=== PATIENT | female | born 1985 | race Caucasian/White ===

== ENCOUNTER 2016-07-24 21:37 | Emergency (ER) | payer OTHER ==
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
--- NOTE | 2016-07-24 22:47 | DIAGNOSTIC IMAGING REPORT ---
PROCEDURE: CT HEAD WITHOUT CONTRAST INDICATION: TRAUMA/INJURY TECHNIQUE: Axial CT images were acquired through the head. Coronal and sagittal reformations were created. COMPARISON: None. FINDINGS: No intracranial hemorrhage or extraaxial fluid collections. Ventricles are normal in size, shape and position. There is no mass, mass effect or midline shift. The lazcano-white matter differentiation is normal. There is no edema. Small right frontal soft tissue contusion. The skull is intact. Visible sinuses and mastoids are normally aerated. IMPRESSION: 1. No CT evidence of acute intracranial process. 2. Findings discussed with Dr. Macedo at [address] scans at this facility use dose modulation, iterative reconstruction, and/or weight-based dosing when appropriate to reduce radiation dose to as low as reasonably achievable.
--- NOTE | 2016-07-25 00:29 | ED ORDER SUMMARY ---
..... Patient: BILL MILLARD OrderSheet [facility] VisitID: [id number] [place] [address] 30y, F Registration Date/Time: 07/24/2016 ORDER SHEET Weight: 58.9 kg (stated) Allergies: No Known Drug Allergy GENERAL ORDERS: CT Head wo Cont Urgent (21:48 07/24/2016 Meir RAZO) (Ack 21:51 OBINNAurca ER Tech1) (22:16 EHassan R.N.) CT Sinus/Facial Bones wo Cont Urgent (21:49 07/24/2016 Meir RAZO) (Ack 21:51 Pool ER Tech1) (22:16 EHassan R.N.) CT Cervical Spine wo Cont Urgent (21:49 07/24/2016 Meir RAZO) (Ack 21:51 Pool ER Tech1) (22:16 EHassan R.N.) CBC w Diff Urgent (21:49 07/24/2016 Meir RAZO) (Ack 21:51 Pool ER Tech1) (22:16 EHassan R.N.) CMP Urgent (21:49 07/24/2016 Meir RAZO) (Ack 21:51 Pool ER Tech1) (22:16 EHassan R.N.) UA-Culture if indicated Urgent (21:49 07/24/2016 Meir RAZO) (Ack 21:51 Pool ER Tech1) (0:52 EHassan R.N.) Amylase Urgent (21:49 07/24/2016 Meir RAZO) (Ack 21:51 Pool ER Tech1) (22:16 EHassan R.N.) Lipase Urgent (21:49 07/24/2016 Meir RAZO) (Ack 21:51 Pool ER Tech1) (22:16 EHassan R.N.) Urine Urgent (21:49 07/24/2016 Meir RAZO) (Ack 21:51 Pool ER Tech1) (22:16 EHassan R.N.) Urine Drug Screen Urgent (21:49 07/24/2016 Meir RAZO) (Ack 21:51 IJurca ER Tech1) (22:16 Vivian R.N.) Ethyl Alcohol Urgent (21:49 07/24/2016 Meir RAZO) (Ack 21:51 Pool OSBORNE Tech1) (22:16 Vivian R.N.) MEDICATION ORDERS: Tdap IM 0.5 mL (NOW) (21:50 07/24/2016 Meir RAZO) (22:38 Vivian R.N.) Augmentin PO 875 mg (NOW) (23:07 07/24/2016 Meir RAZO) (23:31 Vivian R.N.) IV FLUIDS: IV NS : initial bolus 1000 mL (1000 mL/hr), then 150 mL/hr for 4h (NOW); Urgent (21:48 07/24/2016 Meir RAZO) (21:56 Isidra R.N.) Dilaudid IV 0.5 mg (HIGH ALERT MEDICATION, NOW) (22:15 07/24/2016 Meir RAZO) (22:16 Vivian R.N.) Dilaudid IV 0.5 mg (Q 15 minutes for a total of 2 mg) (22:31 07/24/2016 Vivian R.N. verbal order read back to Meir RAZO) (22:35 Vivian R.N.) ORDER SHEET NOTES: [Electronically signed by Toya Dexter R.N. (00:54 07/25/2016)] [Electronically signed by Jose Macedo MD (02:22 07/25/2016)] [Electronically locked/signed by Toya Dexter R.N. (00:54 07/25/2016)]
--- NOTE | 2016-07-25 00:29 | ED ORDER SUMMARY ---
..... Patient: BILL MILLARD OrderSheet [facility] VisitID: [id number] [place] [address] 30y, F Registration Date/Time: 07/24/2016 ORDER SHEET Weight: 58.9 kg (stated) Allergies: No Known Drug Allergy GENERAL ORDERS: CT Head wo Cont Urgent (21:48 07/24/2016 Meir RAZO) (Ack 21:51 OBINNAurca ER Tech1) (22:16 EHassan R.N.) CT Sinus/Facial Bones wo Cont Urgent (21:49 07/24/2016 Meir RAZO) (Ack 21:51 Pool ER Tech1) (22:16 EHassan R.N.) CT Cervical Spine wo Cont Urgent (21:49 07/24/2016 Meir RAZO) (Ack 21:51 Pool ER Tech1) (22:16 EHassan R.N.) CBC w Diff Urgent (21:49 07/24/2016 Meir RAZO) (Ack 21:51 Pool ER Tech1) (22:16 EHassan R.N.) CMP Urgent (21:49 07/24/2016 Meir RAZO) (Ack 21:51 Pool ER Tech1) (22:16 EHassan R.N.) UA-Culture if indicated Urgent (21:49 07/24/2016 Meir RAZO) (Ack 21:51 Pool ER Tech1) (0:52 EHassan R.N.) Amylase Urgent (21:49 07/24/2016 Meir RAZO) (Ack 21:51 Pool ER Tech1) (22:16 EHassan R.N.) Lipase Urgent (21:49 07/24/2016 Meir RAZO) (Ack 21:51 Pool ER Tech1) (22:16 EHassan R.N.) Urine Urgent (21:49 07/24/2016 Meir RAZO) (Ack 21:51 Pool ER Tech1) (22:16 EHassan R.N.) Urine Drug Screen Urgent (21:49 07/24/2016 Meir RAZO) (Ack 21:51 IJurca ER Tech1) (22:16 Vivian R.N.) Ethyl Alcohol Urgent (21:49 07/24/2016 Meir RAOZ) (Ack 21:51 Pool OSBORNE Tech1) (22:16 Vivian R.N.) MEDICATION ORDERS: Tdap IM 0.5 mL (NOW) (21:50 07/24/2016 Meir RAZO) (22:38 Vivian R.N.) Augmentin PO 875 mg (NOW) (23:07 07/24/2016 Meir RAZO) (23:31 Vivian R.N.) IV FLUIDS: IV NS : initial bolus 1000 mL (1000 mL/hr), then 150 mL/hr for 4h (NOW); Urgent (21:48 07/24/2016 Meir RAZO) (21:56 Isidra R.N.) Dilaudid IV 0.5 mg (HIGH ALERT MEDICATION, NOW) (22:15 07/24/2016 Meir RAZO) (22:16 Vivian R.N.) Dilaudid IV 0.5 mg (Q 15 minutes for a total of 2 mg) (22:31 07/24/2016 Vivian R.N. verbal order read back to Meir RAZO) (22:35 Vivian R.N.) ORDER SHEET NOTES: [Electronically signed by Toya Dexter R.N. (00:54 07/25/2016)] [Electronically signed by Jose Macedo MD (02:22 07/25/2016)] [Electronically locked/signed by Toya Dexter R.N. (00:54 07/25/2016)]
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
--- NOTE | 2016-07-25 02:23 | ED MED RECONCILIATION SUMMARY ---
Patient: BILL MILLARD Medication Reconciliation Report [facility] VisitID: [id number] [place] [address] 30y, F Registration Date/Time: 07/24/2016 Weight: 58.9 kg Height/Length: 67 in. BMI: 20.4 ALLERGIES: No Known Drug Allergy The patient's Home Medications are listed below: THE FOLLOWING MEDICATIONS NEED TO BE RECONCILED: Vitamins Oral PriLOSEC Oral The source(s) of the original Home Medication information: Not obtained. The following Medications were given to the patient in the Emergency Department: IV NS IV Fluids bolus 1000 mL over 1 hour(s), administered: 07/24/2016 9:56:00 PM Dilaudid [IVP] IVP 0.5 mg, administered: 07/24/2016 10:16:00 PM Dilaudid [IVP] IVP 0.5 mg, administered: 07/24/2016 10:35:00 PM TDAP [IM] IM 0.5 mL, administered: 07/24/2016 10:38:00 PM Dilaudid [IVP] IVP 0.5 mg, administered: 07/24/2016 11:05:00 PM Dilaudid [IVP] IVP 0.5 mg, administered: 07/24/2016 11:28:00 PM Augmentin [PO] PO 875 mg, administered: 07/24/2016 11:31:00 PM The following Medications were prescribed to the patient: Hydrocodone/APAP 5mg/325mg: take 1 to 2 orally every 6 hours as needed for pain. Dispense fifteen (15). No refills. -- Jose Macedo MD Augmentin 875 mg: take 1 tablet orally every 12 hours for 10 days. No refill. Substitution is permissible. -- Jose Macedo MD
--- NOTE | 2016-07-25 02:23 | ED MED RECONCILIATION SUMMARY ---
Patient: BILL MILLARD Medication Reconciliation Report [facility] VisitID: [id number] [place] [address] 30y, F Registration Date/Time: 07/24/2016 Weight: 58.9 kg Height/Length: 67 in. BMI: 20.4 ALLERGIES: No Known Drug Allergy The patient's Home Medications are listed below: THE FOLLOWING MEDICATIONS NEED TO BE RECONCILED: Vitamins Oral PriLOSEC Oral The source(s) of the original Home Medication information: Not obtained. The following Medications were given to the patient in the Emergency Department: IV NS IV Fluids bolus 1000 mL over 1 hour(s), administered: 07/24/2016 9:56:00 PM Dilaudid [IVP] IVP 0.5 mg, administered: 07/24/2016 10:16:00 PM Dilaudid [IVP] IVP 0.5 mg, administered: 07/24/2016 10:35:00 PM TDAP [IM] IM 0.5 mL, administered: 07/24/2016 10:38:00 PM Dilaudid [IVP] IVP 0.5 mg, administered: 07/24/2016 11:05:00 PM Dilaudid [IVP] IVP 0.5 mg, administered: 07/24/2016 11:28:00 PM Augmentin [PO] PO 875 mg, administered: 07/24/2016 11:31:00 PM The following Medications were prescribed to the patient: Hydrocodone/APAP 5mg/325mg: take 1 to 2 orally every 6 hours as needed for pain. Dispense fifteen (15). No refills. -- Jose Macedo MD Augmentin 875 mg: take 1 tablet orally every 12 hours for 10 days. No refill. Substitution is permissible. -- Jose Macedo MD
--- NOTE | 2016-07-25 02:23 | ED DISCHARGE INSTRUCTIONS ---
Patient: BILL MILLARD General Instructions [facility] VisitID: [id number] [address] [place] [address] 30y, F Registration Date/Time: 07/24/2016 Multiple deep abrasions to the forehead and nose. Substance abuse- alcohol with intoxication. Deep skin avulsion of the nose. Open nasal fracture. Superficial laceration to upper lip. INSTRUCTIONS No driving or operating machinery while taking medication. Sedative medication was given during your visit. (do not take any of the hydrocodone/acetaminophen until after 8:00 this morning as discussed). Warnings: Further evaluation is necessary. HEAD INJURY PRECAUTIONS: An observer must check on the patient every 2 hours for the next 24 hours (awaken if sleeping) to confirm that the patient responds as expected, is not confused, has no new weakness or numbness, and has no other problems. COMPLICATIONS: Complications from this condition include: possible infection, possible foreign body remaining in the wound and possible injury to a nerve. Future problems may include infection, scarring, loss of function, pain and deformity. Future problems may include poor fracture healing. INFECTION: Watch for signs of infection (increasing heat and redness, pus-like drainage, swelling, or increased pain). Return or see your doctor if these signs occur. It is important to follow up with a physician for further evaluation and treatment. GENERAL WARNINGS: Return or contact your physician immediately if your condition worsens or changes unexpectedly, if not improving as expected, or if other problems arise. Prescription Medications: Hydrocodone/APAP 5mg/325mg: take 1 to 2 orally every 6 hours as needed for pain. Dispense fifteen (15). No refills. Augmentin 875 mg: take 1 tablet orally every 12 hours for 10 days. No refill. Substitution is permissible. Follow-up: Follow up with your doctor in seven days for suture removal. Understanding of the discharge instructions verbalized by patient. Discharge instructions reviewed with and understanding was verbalized by supervisor product inspection. Follow-up with: Andrae Mcclure MD, ENT, , [facility], [address] [place] [address], [facility], [id number] Follow up today. Call for an appointment. ADDITIONAL INFORMATION Abrasions Abrasions are skin scrapes. Their treatment depends on how large and deep the abrasion is. Home Care: If you were given a bandage, change it once a day. If your bandage sticks to the wound, soak it in warm water until it loosens. Wash the area with soap and water to remove all the cream/ointment. You may do this in a sink, under a tub faucet or shower. Rinse off the soap and pat dry with a clean towel. Reapply cream/ointment according to your doctor's instructions. This will prevent infection and help prevent the bandage from sticking. Cover the wound with a fresh non-stick bandage (Telfa). Repeat steps 1 to 4 daily, or as directed by your doctor. If the bandage becomes wet or dirty, change it as soon as possible. You may use acetaminophen (Tylenol) or ibuprofen (Motrin, Advil) to control pain, unless another pain medicine was prescribed. [ NOTE : If you have chronic liver or kidney disease or ever had a stomach ulcer or GI bleeding, talk with your doctor before using these medicines.] Do not use ibuprofen in children under six months of age. Follow Up with your physician or this facility as directed by our staff. Most skin wounds heal within ten days. However, an infection may occur despite proper treatment. Therefore, look for the early signs of infection listed below. Get Prompt Medical Attention if any of the following occur: Increasing pain in the wound Increasing redness or swelling Pus coming from the wound Fever of 100.4F (38C) or higher, or as directed by your healthcare provider Alcohol Intoxication Alcohol intoxication occurs when you drink alcohol faster than your liver can remove it from your system. Alcohol intoxication affects your judgment and coordination. Very high blood alcohol levels can cause coma, very slow breathing and even . If you drink alcohol every day, this may gradually cause permanent damage to your liver, brain, heart, pancreas and other organs. Alcohol use during may cause permanent damage to the growing baby. Home Care: Do not drink any more alcohol. DO NOT DRIVE until all effects of the alcohol have worn off. Get lots of rest over the next few days. Drink plenty of water and other non-alcoholic liquids. Try to eat regular meals. If you have been drinking heavily on a daily basis, you may go through alcohol withdrawl. This is also called the shakes or DTs. The usual symptoms last 3 to 4 days and may include nervousness, shakiness, nausea, sweating or sleeplessness. During this time, it is best that you stay with family or friends who can help and support you. You can also admit yourself to a residential detox program. If your symptoms are severe, contact your doctor for medicines to help. Follow Up: If alcohol is causing a problem in your life, these and other organizations can help you: Alcoholics Anonymous offers support through a self-help fellowship. There are no dues or fees. See the Yellow Pages and call for time and place of meetings. www.aa.org [employer] offers support to families of alcohol users. 724.513.7769 www.al-anon.org [employer] [place] [employer] Alcoholism And Drug Dependence 796-055-1211 www.ncadd.org There are also inpatient or residential alcohol detox programs. Check the Internet or phonebook Yellow Pages under Drug Abuse & Treatment Centers. Get Prompt Medical Attention if any of the following occur: there) Fractured Nose [With X-Ray] You have a fracture (break) in the nasal bone. It may be a minor hairline crack or a major break with the parts pushed out of place. A fractured nose causes pain, swelling and nasal stuffiness. Sometimes, there is also bleeding from the nose. By the next day, it is common to get bruising around the eyes from a broken nose. A minor fracture will heal in about 3-4 weeks with no additional treatment needed. A major break, causing a change in shape of the nose, will require straightening of the nasal bones (reduction) by an ENT doctor (nose specialist). Some fractures may need a reduction as soon as possible (such as those with continued bleeding). Otherwise, it is best to wait a few days until the swelling has gone down. This gives a better result since the doctor can easily see when the nose is back in the right position. Home Care: Apply an ice pack (ice cubes in a plastic bag, wrapped in a towel) over the injured area for 20 minutes every 1-2 hours the first day. Continue with ice packs 3-4 times a day for the next two days, then as needed for the relief of pain and swelling. Notify your doctor if you are taking aspirin or blood thinners (coumadin). These will promote nose bleeding. Your dose may need to be adjusted. You may use acetaminophen (Tylenol) or ibuprofen (Motrin, Advil) to control pain, unless another medicine was prescribed. [NOTE: If you have chronic liver or kidney disease or ever had a stomach ulcer or GI bleeding, talk with your doctor before using these medicines.] Avoid alcohol and hot liquids for the next two days. Alcohol or hot liquids in your mouth can dilate blood vessels in your nose and cause bleeding. Avoid blowing your nose for the first two days. Then, do so gently so you don't cause bleeding. Do not play contact sports in the next six weeks unless you can protect your nose from re-injury. Special custom-fitted plastic face masks are available for this purpose. Follow Up with your doctor or as advised. If your nose appears crooked or if you continue to have difficulty breathing through one or both sides of your nose after the swelling goes down, call the ENT doctor (nose specialist) for an appointment. If you have trouble getting an ENT appointment, call your regular doctor or return here. If the bones are out of place, a reduction should be done between 6-10 days after the injury in adults; and between 3-7 days after injury in children. After that time, the bones become more difficult to move back into position. [NOTE: Any X-rays taken will be reviewed by a radiologist. You will be notified if there are new findings that may affect your care.] Get Prompt Medical Attention if any of the following occur: Bleeding from the nose that is not controlled by pinching the nostrils together for 15 minutes Increasing facial swelling, pain or redness Fever of 100.4F (38C) or higher, or as directed by your healthcare provider Unable to breathe from both sides of the nose after swelling goes down Sinus pain Repeated vomiting Severe or worsening headache or dizziness Unusual drowsiness, or unable to awaken as usual Confusion or change in behavior or speech Convulsion (seizure) Laceration, Lip and Mouth Alaceration is a cut through the skin. When the cut is on the outside of the lip, it may be closed with stitches, surgical tape, or sometimes skin glue. Cuts inside the mouth may be sutured or left open, depending on the size. When stitches are used in the mouth, they are usually the kind that dissolve. Home care The following guidelines will help you care for your laceration at home: Eat soft foods to reduce pain when chewing. If the cut isinsideyour mouth, clean the wound by rinsing your mouth after each meal and at bedtime with a mixture of equal parts water and hydrogen peroxide (do not swallow!). Or, you can use a cotton swab to apply hydrogen peroxide directly onto the cut. Mouth wounds can be painful when eating. You may use a local, [id number] numbing solution for pain relief. If this is not available, you may use any numbing solution for teething babies. You may apply this directly to the sores with a cotton-tip swab or with your finger. If the cut is on theoutsideof the lip and sutures were used, you may shower as usual after the first 24 hours, but do not put your head under water until the sutures are removed. After removing the bandage, wash the area with soap and water. Use a wet cotton swab to loosen and remove any blood or crust that forms. After cleaning, keep the wound clean and dry. Talk with your doctor before applying any antibiotic ointment to the wound. You may apply an adhesive bandage or leave the wound open. If surgical tape was used, keep the area clean and dry. If it becomes wet, blot it dry with a towel. Talk with your doctor before applying any antibiotic ointment to the wound. The surgical tape closures will usually fall off after about 5 days. If skin glue was used, do not scratch, rub, or pick at the adhesive film. Do not place tape directly over the film.Do not apply liquid, ointment, or creams to the wound while the film is inplace.Do not clean the wound with peroxide and do not apply ointment. Avoid activities that cause heavy sweating until the film has fallen off. Protect the wound from prolonged exposure to sunlight or tanning lamps. You may shower as usual but do not soak the wound in water (no swimming). If you were given an antibiotic to prevent infection, do not stop taking this medication until you have finished the prescribed course or the doctor tells you to stop. The doctor may prescribe medications for pain. Follow the doctor's instructions for taking these medications.If you have chronic liver or kidney disease or ever had a stomach ulcer or GI bleeding, talk with your doctor before using these medicines. Follow-up care Follow up with your health care provider. Cuts in and around the mouth heal in about five days. However, even with proper treatment, a wound infection sometimes occurs. Therefore, check the wound daily for the warning signs listed below. Stitches should not be left in the face for more thanfivedays; otherwise, permanent stitch morel may form. Unless told otherwise, you may remove surgical tape closures yourself afterfive days, if they have not already fallen off. Ifskin glue was used, the film will fall off by itself in 510 days. When to seek medical care Get prompt medical attention if any of these occur: Increasing pain in the wound Fever of 100.4F (38C) or higher, or as directed by your health care provider Redness, swelling, or pus coming from the wound If sutures come apart or fall out or if surgical tape falls off before three days If the wound edges reopen Bleeding not controlled by direct pressure Head Injury With Wake-Up (Adult) You have had a head injury. It does not appear serious at this time. Symptoms of a more serious problem (concussion, bruising, or bleeding in the brain) may appear later. Therefore, watch for the WARNING SIGNS listed below. Home Care: During the next 24 hours someone must stay with you. This person should wake you every 2 hours to check for the signs below. If you have swelling of the face or scalp, apply an ice pack (ice cubes in a plastic bag, wrapped in a towel) for 20 minutes every 1-2 hours until the swelling starts to go down. Do not use aspirin or ibuprofen (Motrin, Advil) after a head injury. You may use acetaminophen (Tylenol) to control pain, unless another pain medicine was prescribed. [NOTE: If you have chronic liver or kidney disease or ever had a stomach ulcer or GI bleeding, talk with your doctor before using these medicines.] For the next 24 hours: Do not take alcohol, sedatives, or medicines that make you sleepy. Do not drive or operate machinery. Avoid strenuous activities. No lifting or straining. If you have had any symptoms of a concussion today (nausea, vomiting, dizziness, confusion, headache, memory loss, or you were knocked out), do not return to sports or any activity that could result in another head injury until all symptoms are gone and you have been cleared by your doctor. A second head injury before fully recovering from the first one can lead to serious brain injury. Follow Up with your doctor if symptoms are not improving after 24 hours, or as directed. [NOTE: A radiologist will review any X-rays or CT scans that were taken. We will notify you of any new findings that may affect your care.] Get Prompt Medical Attention if any of the following WARNING SIGNS occur: Repeated vomiting Severe or worsening headache or dizziness Unusual drowsiness, or unable to awaken as usual Confusion or change in behavior or speech, memory loss, blurred vision Convulsion (seizure) Increasing scalp or face swelling Redness, warmth or pus from the swollen area Fluid drainage or bleeding from the nose or ears Hydrocodone Bitartrate, Acetaminophen Oral tablet What is this medicine? ACETAMINOPHEN; HYDROCODONE (a set a PRISCILA carla fen; favio droe KOE done) is a pain reliever. It is used to treat mild to moderate pain. How should I use this medicine? Take this medicine by mouth. Swallow it with a full glass of water. Follow the directions on the prescription label. If the medicine upsets your stomach, take the medicine with food or milk. Do not take more than you are told to take. Talk to your telecom billing analyst regarding the use of this medicine in children. This medicine is not approved for use in children. What side effects may I notice from receiving this medicine? Side effects that you should report to your doctor or health healthcare risk control consultant as soon as possible: allergic reactions like skin rash, itching or hives, swelling of the face, lips, or tongue breathing problems confusion feeling faint or lightheaded, falls stomach pain yellowing of the eyes or skin Side effects that usually do not require medical attention (report to your doctor or health healthcare risk control consultant if they continue or are bothersome): nausea, vomiting stomach upset What may interact with this medicine? alcohol antihistamines isoniazid medicines for depression, anxiety, or psychotic disturbances medicines for sleep muscle relaxants naltrexone narcotic medicines (opiates) for pain phenobarbital ritonavir tramadol What if I miss a dose? If you miss a dose, take it as soon as you can. If it is almost time for your next dose, take only that dose. Do not take double or extra doses. Where should I keep my medicine? Keep out of the reach of children. This medicine can be abused. Keep your medicine in a safe place to protect it from theft. Do not share this medicine with anyone. Selling or giving away this medicine is dangerous and against the law. Store at room temperature between 15 and 30 degrees C (59 and 86 degrees F). Protect from light. Keep container tightly closed. Throw away any unused medicine after the expiration date. Discard unused medicine and used packaging carefully. Pets and children can be harmed if they find used or lost packages. What should I tell my health care provider before I take this medicine? They need to know if you have any of these conditions: brain tumor Crohn's disease, inflammatory bowel disease, or ulcerative colitis drink more than 3 alcohol-containing drinks per day drug abuse or addiction head injury heart or circulation problems kidney disease or problems going to the bathroom liver disease lung disease, asthma, or breathing problems an unusual or allergic reaction to acetaminophen, hydrocodone, other opioid analgesics, other medicines, foods, dyes, or preservatives or trying to get breast-feeding What should I watch for while using this medicine? Tell your doctor or health healthcare risk control consultant if your pain does not go away, if it gets worse, or if you have new or a different type of pain. You may develop tolerance to the medicine. Tolerance means that you will need a higher dose of the medicine for pain relief. Tolerance is normal and is expected if you take the medicine for a long time. Do not suddenly stop taking your medicine because you may develop a severe reaction. Your body becomes used to the medicine. This does NOT mean you are addicted. Addiction is a behavior related to getting and using a drug for a non-medical reason. If you have pain, you have a medical reason to take pain medicine. Your doctor will tell you how much medicine to take. If your doctor wants you to stop the medicine, the dose will be slowly lowered over time to avoid any side effects. You may get drowsy or dizzy when you first start taking the medicine or change doses. Do not drive, use machinery, or do anything that may be dangerous until you know how the medicine affects you. Stand or sit up slowly. There are different types of narcotic medicines (opiates) for pain. If you take more than one type at the same time, you may have more side effects. Give your health care provider a list of all medicines you use. Your doctor will tell you how much medicine to take. Do not take more medicine than directed. Call emergency for help if you have problems breathing. The medicine will cause constipation. Try to have a bowel movement at least every 2 to 3 days. If you do not have a bowel movement for 3 days, call your doctor or health healthcare risk control consultant. Too much acetaminophen can be very dangerous. Do not take Tylenol (acetaminophen) or medicines that contain acetaminophen with this medicine. Many non-prescription medicines contain acetaminophen. Always read the labels carefully. Amoxicillin Trihydrate, Clavulanate Potassium Oral tablet What is this medicine? AMOXICILLIN; CLAVULANIC ACID (a mox i SUPRIYA in; OLGA colvin ic id) is a penicillin antibiotic. It is used to treat certain kinds of bacterial infections. It will not work for colds, flu, or other viral infections. How should I use this medicine? Take this medicine by mouth with a full glass of water. Follow the directions on the prescription label. Take at the start of a meal. Do not crush or chew. If the tablet has a score line, you may cut it in half at the score line for easier swallowing. Take your medicine at regular intervals. Do not take your medicine more often than directed. Take all of your medicine as directed even if you think you are better. Do not skip doses or stop your medicine early. Talk to your telecom billing analyst regarding the use of this medicine in children. Special care may be needed. What side effects may I notice from receiving this medicine? Side effects that you should report to your doctor or health healthcare risk control consultant as soon as possible: allergic reactions like skin rash, itching or hives, swelling of the face, lips, or tongue breathing problems dark urine fever or chills, sore throat redness, blistering, peeling or loosening of the skin, including inside the mouth seizures trouble passing urine or change in the amount of urine unusual bleeding, bruising unusually weak or tired white patches or sores in the mouth or throat Side effects that usually do not require medical attention (report to your doctor or health healthcare risk control consultant if they continue or are bothersome): diarrhea dizziness headache nausea, vomiting stomach upset vaginal or anal irritation What may interact with this medicine? allopurinol anticoagulants control pills methotrexate probenecid What if I miss a dose? If you miss a dose, take it as soon as you can. If it is almost time for your next dose, take only that dose. Do not take double or extra doses. Where should I keep my medicine? Keep out of the reach of children. Store at room temperature below 25 degrees C (77 degrees F). Keep container tightly closed. Throw away any unused medicine after the expiration date. What should I tell my health care provider before I take this medicine? They need to know if you have any of these conditions: bowel disease, like colitis kidney disease liver disease mononucleosis an unusual or allergic reaction to amoxicillin, penicillin, cephalosporin, other antibiotics, clavulanic acid, other medicines, foods, dyes, or preservatives or trying to get breast-feeding What should I watch for while using this medicine? Tell your doctor or health healthcare risk control consultant if your symptoms do not improve. Do not treat diarrhea with over the counter products. Contact your doctor if you have diarrhea that lasts more than 2 days or if it is severe and watery. If you have diabetes, you may get a false-positive result for sugar in your urine. Check with your doctor or health healthcare risk control consultant. control pills may not work properly while you are taking this medicine. Talk to your doctor about using an extra method of control. You have been given the following additional information: Abrasion Alcohol Intoxication Fracture, Nose (With X-Ray) Laceration, Lip/Mouth HEAD INJURY with Wake-Up (Adult) Hydrocodone Bitartrate, Acetaminophen Oral tablet Amoxicillin Trihydrate, Clavulanate Potassium Oral tablet No driving or operating machinery while taking medication. Sedative medication was given during your visit. (Electronically signed by Jose Macedo MD 07/25/2016 2:22)
--- NOTE | 2016-07-25 02:23 | ED MAR SUMMARY ---
..... Medication Administration Record [facility] [address] [facility] [address] Patient: BILL MILLARD Visit ID: [id number] 30y, F Weight: 58.9 kg Height/Length: 67 in BMI: 20.4 ALLERGIES: No Known Drug Allergy Start 21:56 07/24/2016 Mamadou Najera R.N., Stop 23:00 07/24/2016 Toya Dexter R.N. Medication Administered: IV NS (SALINE), Dose: IV Fluids, Bolus: 1000 mL over 1 hour(s), Dispensed: 1000 mL bag, Site: #2 left AC. Medication Ordered: IV NS : initial bolus 1000 mL (1000 mL/hr), then 150 mL/hr for 4h (NOW); Urgent. Given 22:16 07/24/2016 Toya Dexter R.N. Medication Administered: DILAUDID [IVP] (HYDROMORPHONE HCL PF), Dose: 0.5 mg IVP over 1 minute(s), Site: #2 left AC. Medication Ordered: Dilaudid IV 0.5 mg (HIGH ALERT MEDICATION, NOW). Given 22:35 07/24/2016 Toya Dexter R.N. Medication Administered: DILAUDID [IVP] (HYDROMORPHONE HCL PF), Dose: 0.5 mg IVP over 1 minute(s), Site: #2 left AC. Medication Ordered: Dilaudid IV 0.5 mg (Q 15 minutes for a total of 2 mg). Given 22:38 07/24/2016 Toya Dexter R.N. Medication Administered: TDAP [IM], Dose: 0.5 mL IM. Medication Ordered: Tdap IM 0.5 mL (NOW). Given 23:05 07/24/2016 Toya Dexter R.N. Medication Administered: DILAUDID [IVP] (HYDROMORPHONE HCL PF), Dose: 0.5 mg IVP over 1 minute(s), Site: #1 right AC. Medication Ordered: Dilaudid IV 0.5 mg (Q 15 minutes for a total of 2 mg). Given 23:28 07/24/2016 Toya Dexter RCaridadN. Medication Administered: DILAUDID [IVP] (HYDROMORPHONE HCL PF), Dose: 0.5 mg IVP over 1 minute(s), Site: #1 right AC. Medication Ordered: Dilaudid IV 0.5 mg (Q 15 minutes for a total of 2 mg). Given 23:31 07/24/2016 Toya Dexter R.NCaridad Medication Administered: AUGMENTIN [PO] (AMOXICILLIN-POT CLAVULANATE), Dose: 875 mg Tablets PO. Medication Ordered: Augmentin PO 875 mg (NOW).
--- NOTE | 2016-07-25 02:23 | ED MAR SUMMARY ---
..... Medication Administration Record [facility] [address] [facility] [place] [address] Patient: BILL MILLARD Visit ID: [id number] 30y, F Weight: 58.9 kg Height/Length: 67 in BMI: 20.4 ALLERGIES: No Known Drug Allergy Start 21:56 07/24/2016 Mamadou Najera R.N., Stop 23:00 07/24/2016 Toya Dexter R.N. Medication Administered: IV NS (SALINE), Dose: IV Fluids, Bolus: 1000 mL over 1 hour(s), Dispensed: 1000 mL bag, Site: #2 left AC. Medication Ordered: IV NS : initial bolus 1000 mL (1000 mL/hr), then 150 mL/hr for 4h (NOW); Urgent. Given 22:16 07/24/2016 Toya Dexter R.N. Medication Administered: DILAUDID [IVP] (HYDROMORPHONE HCL PF), Dose: 0.5 mg IVP over 1 minute(s), Site: #2 left AC. Medication Ordered: Dilaudid IV 0.5 mg (HIGH ALERT MEDICATION, NOW). Given 22:35 07/24/2016 Toya Dexter R.N. Medication Administered: DILAUDID [IVP] (HYDROMORPHONE HCL PF), Dose: 0.5 mg IVP over 1 minute(s), Site: #2 left AC. Medication Ordered: Dilaudid IV 0.5 mg (Q 15 minutes for a total of 2 mg). Given 22:38 07/24/2016 Toya Dexter R.N. Medication Administered: TDAP [IM], Dose: 0.5 mL IM. Medication Ordered: Tdap IM 0.5 mL (NOW). Given 23:05 07/24/2016 Toya Dexter R.N. Medication Administered: DILAUDID [IVP] (HYDROMORPHONE HCL PF), Dose: 0.5 mg IVP over 1 minute(s), Site: #1 right AC. Medication Ordered: Dilaudid IV 0.5 mg (Q 15 minutes for a total of 2 mg). Given 23:28 07/24/2016 Toya Dexter RCaridadN. Medication Administered: DILAUDID [IVP] (HYDROMORPHONE HCL PF), Dose: 0.5 mg IVP over 1 minute(s), Site: #1 right AC. Medication Ordered: Dilaudid IV 0.5 mg (Q 15 minutes for a total of 2 mg). Given 23:31 07/24/2016 Toya Dexter R.NCaridad Medication Administered: AUGMENTIN [PO] (AMOXICILLIN-POT CLAVULANATE), Dose: 875 mg Tablets PO. Medication Ordered: Augmentin PO 875 mg (NOW).
== END 2016-07-25 00:45 | disposition home or self-care (01) ==
LOC: ED SRH 21:37
DX: S02.2XXB Fracture of nasal bones, initial encounter for open fracture (principal); S01.511A Laceration without foreign body of lip, initial encounter; S01.20XA Unspecified open wound of nose, initial encounter; S00.81XA Abrasion of other part of head, initial encounter; F10.129 Alcohol abuse with intoxication, unspecified; Y04.0XXA Assault by unarmed brawl or fight, initial encounter; Y93.89 Activity, other specified; Y92.523 Highway rest stop as the place of occurrence of the external cause; Y99.8 Other external cause status
CPT/HCPCS: 90100; 92010; 92235; 92530; 95059